=== PATIENT | female | born 1985 | race Caucasian/White ===

== ENCOUNTER 2022-08-15 09:53 | Emergency (ER) | payer OTHER, SELFPAY ==
[2022-08-15 10:12] VITALS: BP 125/85; PULSE 61; RESP 16; TEMP 36.7; O2SAT 100; BMI 20.2
--- NOTE | 2022-08-15 13:18 | ED_ITS ---
HPI - General Adult General Time Seen by Provider: 13:18 Date Seen: 08/15/22 Chief complaint: Urogenital Problems, Female Stated complaint: Pelvic pain Time Seen by Provider: 08/15/22 13:18 Source: patient and RN notes reviewed Mode of arrival: ambulatory Limitations: no limitations History of Present Illness HPI narrative: Patient is a 37-year-old female coming in with pelvic pain that started today. She has a Mirena IUD in and has never had complications before. This is her 3rd Mirena IUD that she has had. She has urinated normally today, no dysuria. No vaginal discharge. She does not get her menstrual cycles with her IUD. She has had no nausea or vomiting, no change in stools. She has had 1 before. Pelvic pain has just gotten worse. She has never been diagnosed with an ovarian cyst from the IUD. She does not think she needs anything for pain management at this time. She maybe had a little discomfort when she 1st got up this morning but it was progressively more intense on her way into work. No fevers or chills with this. Related Data Home Medications Medication Instructions Recorded Confirmed levonorgestrel 20 mcg/24 hours (8 intrauterine 08/15/22 yrs) 52 mg intrauterine device (Mirena) Allergies Allergy/AdvReac Type Severity Reaction Status Date / Time No Known Drug Allergies Allergy Verified 08/15/22 10:15 Review of Systems Status of ROS: Reports: 6 or more systems reviewed and unremarkable except as noted in History and below Exam Const: Vital Signs, click to edit/add: Vital Signs - 24 hr 08/15/22 10:12 Temperature 98.1 F Pulse Rate [Pulse Oximeter] 61 Respiratory Rate 16 Blood Pressure [Ri ght Upper Arm] 125/85 Pulse Oximetry 100 Oxygen Delivery Me thod Room Air Documenting provider has reviewed patient's vital signs: yes Common normal s: no apparent distress, oriented x3, no limitations, healthy appearing and alert General appearance: cooperative, comfortable, well kempt and well developed Nutritional appearance: thin HENMT: Common normals: normocephalic, head/scalp atraumatic and hearing grossly normal bilaterally Head and scalp: normocephalic and atraumatic Eye: Common normals: PERRL, EOMs intact bilaterally, conjunctivae normal and no scleral icterus Conjunctiva: conjunctiva(e) normal Pupil: PERRL Neck & C-Spine: Common normals: full ROM, no lymphadenopathy, supple, no meningeal signs, no JVD and thyroid normal Thyroid: thyroid normal Resp: Common normals: normal respiratory effort, no retractions, no use of accessory muscles and clear to auscultation bilaterally Auscultation: clear to auscultation bilaterally Cardio: Common normals: no JVD, regular rate, regular rhythm, S1 normal heart sound, S2 normal heart sound, no gallops, no clicks and no murmurs Rate: regular rate Rhythm: regular rhythm Heart sounds: S1 normal and S2 normal GI: Common normals: Normal to inspection, nondistended, normoactive bowel sounds present, soft to palpation, non-tender, no hepatosplenomegaly and no masses Palpation: soft and no hepatosplenomegaly : Other: Bimanual exam reveals no inguinal adenopathy, normal external genitalia on visualization cervix is nontender, no motion tenderness. Uterus retroverted but does not palpate enlarged. Really cannot feel right adnexa and does not seem to be tender over this area, can feel left ovary and there is maybe some mild tenderness but no rebound or guarding. Neuro: Common normals: oriented x3 and gait normal Sensorium/orientation: alert Meningeal signs: no meningeal signs Speech: speech normal Psych: Appearance: well kempt Course Course Hospital Course: We will obtain a pelvic ultrasound. We will also be doing some baseline blood work including a urinalysis. With the IUD, ovarian cysts certainly could be in the differential. She really has nothing else in her history or symptoms to suggest alternate etiology. Based on her clinical examination, am doubtful that this is a surgical abdomen. Will await labs and ultrasound and guide therapy accordingly. Patient agrees to let us know if her pain is increasing or she feels she needs pain management. Reevaluation(s) Reevaluation #1: Reviewed her workup findings. Reviewed that the left ovary has a small hemorrhagic cyst. Reviewed expectations for resolution and expectations for re- evaluation. Did specifically review ovarian torsion, signs and symptoms, when to return for re-evaluation. Time: 15:59 Vital Signs Vital signs: Initial Vital Signs Temperature 98.1 F 08/15/22 10:12 Temperature Source Temporal Artery Scan 08/15/22 10:12 Pulse Rate 61 08/15/22 10:12 Respiratory Rate 16 12/01/22 10:12 Blood Pressure 125/85 08/15/22 10:12 Blood Pressure Mean 98 08/15/22 10:12 Blood Pressure Position Sitting 08/15/22 10:12 Pulse Oximetry 100 08/15/22 10:12 Oxygen Delivery Method 08/15/22 10:12 Vital Signs Temperature 98.1 F 08/15/22 10:12 Pulse Rate 61 08/15/22 10:12 Respiratory Rate 16 08/15/22 10:12 Blood Pressure 125/85 08/15/22 10:12 Pulse Oximetry 100 08/15/22 10:12 Oxygen Delivery Method 08/15/22 10:12 Temperature 98.1 F 08/15/22 10:12 Pulse Rate 61 08/15/22 10:12 Respiratory Rate 16 08/15/22 10:12 Blood Pressure 125/85 08/15/22 10:12 Pulse Oximetry 100 08/15/22 10:12 Oxygen Delivery Method 08/15/22 10:12 Medical Decision Making Lab Data Lab results reviewed: Yes I reviewed the patient's lab results Labs: Lab Results 08/15/22 08/15/22 08/15/22 Range/Units 13:30 13:56 13:56 WBC 11.71 H (4.50-11.00) K/uL RBC 4.47 (4.00-5.20) m/uL Hgb 13.9 (12.0-16.0) gm/dL Hct 41.9 (33.0-51.0) % MCV 94 (80-100) fL MCH 31 (26-34) pg MCHC 33 (32-36) gm/dL RDW Coeff of Javon 13.0 (11.5-15.5) % Plt Count 266 (140-440) K/uL Neut % (Auto) 67.5 (42.0-72.0) % Lymph % (Auto) 25.9 (20-44) % [place] % (Auto) 5.6 (0.0-11.0) % Eos % (Auto) 0.5 (0.0-7.0) % Baso % (Auto) 0.3 (0.0-3.0) % Neut # (Auto) 7.90 H (1.7-7.0) K/uL Lymph # (Auto) 3.00 H (0.90-2.90) K/uL [place] # (Auto) 0.70 (0.00-0.90) K/UL Eos # (Auto) 0.10 (0.00-0.50) K/uL Baso # (Auto) 0.00 (0.00-0.30) K/uL Abs Immat Gran (auto) 0.00 (0.00-0.30) K/uL Imm/Tot Granulo (auto) 0.2 % Sodium 139 (135-149) mmol/L Potassium 4.2 (3.6-5.1) mmol/L Chloride 104 (96-114) mmol/L Carbon Dioxide 26 (20-32) mmol/L BUN 9 (5-24) mg/dL Creatinine 0.6 (0.5-1.5) mg/dL Estimated Creat Clear 117.14 Estimated GFR 120 ml/min Glucose 83 (60-115) mg/dL Calcium 9.4 (8.4-10.6) mg/dL C-Reactive Protein < 0.5 L (0.5-1.0) mg/dL Urine Color Yellow (Yellow) Urine Appearance Clear (Clear) Urine pH 6.0 (5.0-8.5) Ur Specific [place] 1.025 (1.000-1.030) Urine Protein Negative (Negative) Urine Glucose (UA) Negative (Negative) Urine Ketones 1+ A (Negative) Urine Blood Negative (Negative) Urine Nitrite Negative (Negative) Urine Bilirubin Negative (Negative) Urine Urobilinogen 0.2 (0.2-1.0) Ur Leukocyte Esterase Negative (Negative) Urine RBC 0-2 (0-2) Urine WBC 0-2 (0-5) Ur Squamous Epith Cells Moderate A (None-Few) Urine Bacteria Few A (None) Imaging Data Ultrasound pelvis: Attestation: I have reviewed the pertinent imaging results. Radiologist's impression: Patient: ANNELISE HODGE Facility:?[facility] Patient ID:?[id number] Site Patient ID:?[id number]. Site :?[id number] Study:?US Pelvis TV-08/15/2022 2:31:00 PM Ordering Physician:?Lakisha Castillo Final Report: INDICATION: Pelvic pain. COMPARISON: None. TECHNIQUE: 2D strong scale and color Doppler images were acquired of the pelvis using a transvaginal approach. FINDINGS: Sonographic images demonstrate a normal size and smooth outer contour of the uterus. The uterus is anteverted in position. The uterus measures 6.6 cm in length by 3.3 cm in AP diameter by 4.7 cm in transverse dimension. The myometrium has uniform echotexture. The endometrial lining measures 4 mm in composite thickness. IUD appears appropriately positioned. The right ovary measures 3.3 x 1.7 x 2.9 cm and the left ovary measures 4.3 x 2.5 x 3.8 cm. The ovaries demonstrate normal arterial and venous blood flow on c olor Doppler analysis. There is a 2.0 x 1.3 x 1.4 cm hypoechoic lesion in the left ovary with no internal vascularity. This likely represents a hemorrhagic cyst. Small amount of free fluid in the pelvic cul-de-sac is likely physiologic. IMPRESSION: 1. IUD appears appropriately positioned. 2. Probable 2.0 cm hemorrhagic cyst in the left ovary. Dictated by Nano Huber MD @ 08/15/2022 3:27:46 PM (Electronic Signature) Critical Care Time Critical Care Time Critical Care Time: No Discharge Plan Discharge Clinical Impression: Hemorrhagic cyst of left ovary Patient Disposition: Home, Self-Care Condition: Stable Instructions: Ovarian Cyst (ED) Additional Instructions: Can use Tylenol and/or ibuprofen as needed for pain control, follow bottle directions for dosing. If your developing severe abdominal pain, it is associated with vomiting or fever, have further concerns, please seek re- evaluation. Prescriptions: No Action Mirena 20 mcg/24 hours (8 yrs) 52 mg intrauterine device intrauterine Follow Up/Referrals: Cherie Valencia MD [Primary Care Provider] - Stand Alone Forms: MyHealth Info Instructions
--- NOTE | 2022-08-15 13:30 | CRLHL7_ITS ---
For Patients: As a result of the Century Cures Act, medical imaging exams and procedure reports are released immediately into your electronic medical record. You may view this report before your referring provider. If you have questions, please contact your health care provider. INDICATION: Pelvic pain. COMPARISON: None. TECHNIQUE: 2D strong scale and color Doppler images were acquired of the pelvis using a transvaginal approach. FINDINGS: Sonographic images demonstrate a normal size and smooth outer contour of the uterus. The uterus is anteverted in position. The uterus measures 6.6 cm in length by 3.3 cm in AP diameter by 4.7 cm in transverse dimension. The myometrium has uniform echotexture. The endometrial lining measures 4 mm in composite thickness. IUD appears appropriately positioned. The right ovary measures 3.3 x 1.7 x 2.9 cm and the left ovary measures 4.3 x 2.5 x 3.8 cm. The ovaries demonstrate normal arterial and venous blood flow on color Doppler analysis. There is a 2.0 x 1.3 x 1.4 cm hypoechoic lesion in the left ovary with no internal vascularity. This likely represents a hemorrhagic cyst. Small amount of free fluid in the pelvic cul-de-sac is likely physiologic. IMPRESSION: 1. IUD appears appropriately positioned. 2. Probable 2.0 cm hemorrhagic cyst in the left ovary. Dictated by Nano Huber MD @ 08/15/2022 3:27:46 PM (Electronically Signed)
[2022-08-15 14:04] LABS: Basophils Percent Auto 0.3 % (0.0-3.0); Eosinophils Percent Auto 0.5 % (0.0-7.0); Hematocrit 41.9 % (33.0-51.0); Hemoglobin* 13.9 gm/dL (12.0-16.0); Immature Granulocytes Pct Auto 0.2 %; Lymphocytes Percent Auto 25.9 % (20-44); Mean Corpuscular HGB Conc 33 gm/dL (32-36); Mean Corpuscular Hemoglobin 31 pg (26-34); Mean Corpuscular Volume 94 fL (80-100); Monocytes Percent Auto 5.6 % (0.0-11.0); Neutrophils Percent Auto 67.5 % (42.0-72.0); Platelet Count* 266 K/uL (140-440); Red Blood Count 4.47 m/uL (4.00-5.20); Slide Review Reflex No; White Blood Count* 11.71 K/uL (4.50-11.00)
[2022-08-15 14:20] LABS: Chloride* 104 mmol/L (96-114); Potassium* 4.2 mmol/L (3.6-5.1); Sodium* 139 mmol/L (135-149)
[2022-08-15 14:22] LABS: Creatinine* 0.6 mg/dL (0.5-1.5); Est. Creatinine Clearance* 117.14; Estimated Glomerular Filt Rate 120 ml/min
[2022-08-15 14:23] LABS: Blood Urea Nitrogen* 9 mg/dL (5-24); Carbon Dioxide* 26 mmol/L (20-32); Glucose* 83 mg/dL (60-115)
[2022-08-15 14:24] LABS: Calcium* 9.4 mg/dL (8.4-10.6)
[2022-08-15 14:34] LABS: C Reactive Protein* < 0.5 mg/dL (0.5-1.0)
[2022-08-15 14:42] LABS: Appearance Urine Clear (Clear); Bilirubin Urine Negative (Negative); Blood Urine Negative (Negative); Color Urine Yellow (Yellow); Glucose Urine Negative (Negative); Ketones Urine 1+ (Negative); Leukocyte Esterase Urine Negative (Negative); Nitrite Urine Negative (Negative); Protein Urine Negative (Negative); Specific Gravity Urine 1.025 (1.000-1.030); Urobilinogen Urine 0.2 (0.2-1.0)
[2022-08-15 14:51] LABS: Bacteria Urine Few; RBC Urine 0-2 (0-2); Squamous Epithelial Cell Urine Moderate (None-Few); WBC Urine 0-2 (0-5)
== END 2022-08-15 16:19 | disposition home or self-care (01) ==
PROVIDERS: Emergency Provider Family Medicine; PCP Family Medicine
DX: N83.202 Unspecified ovarian cyst, left side (principal)
CPT/HCPCS: 36415; 76830; 80048; 81001; 85025; 86140; 87086; 93976; 99284